=== PATIENT | male | born 1985 | race Hispanic/Latino ===

== ENCOUNTER 2016-08-16 15:44 | Emergency (ER) | payer SELFPAY ==
[2016-08-16] MEDS ORDERED: NORCO 5/325 PO ONE (18:33)
[2016-08-16] MEDS ORDERED: CLEOCIN PO ONE (18:34)
--- NOTE | 2016-08-16 18:44 | Emergency Department Report ---
ED ENT HPI - General Chief complaint: Dental/Oral Stated complaint: TOOTHACHE Time Seen by Provider: 08/16/16 18:05 Source: patient Mode of arrival: Ambulatory Limitations: No Limitations - History of Present Illness Initial comments: 30 male past medical history none presents with complaint of 3 days of right- sided upper dental pain and right-sided earache. Patient states he has had some swelling of his gum line has several severely carried teeth which he has had for several months and has not addressed. Denies any blood or pus drainage from mouth but does state that he has toothache in the right side. Denies any difficulty speaking no difficulty swallowing solids or liquids patient speaking in full sentences does not appear to be in acute distress does have very minor right-sided facial swelling. Patient also states incidentally that he has right -sided earache the last several days, has been cleaning his ears with Q-tips and hydrogen peroxide. MD complaint: tooth pain, ear pain Onset/Timin -: days(s) Location: R ear, tooth # (13-15) Severity: moderate Severity scale (0 -10): 6 Quality: aching Consistency: constant Improves with: none Worsens with: none Context- Dental: history of dental caries Associated Symptoms: gum swelling, toothache - Related Data Previous Rx's Medication Instructions Recorded Last Taken Type Acetaminophen/Codeine [Tylenol #3] 1 tab PO Q6H PRN #15 tab 08/16/16 Unknown Rx Cefpodoxime Proxetil 200 mg PO Q12H #14 tablet 08/16/16 Unknown Rx Chlorhexidine Mouthwash [Peridex] 30 ml MM BID #1 bottle 08/16/16 Unknown Rx Clindamycin [Clindamycin CAP] 300 mg PO Q6H #28 capsule 08/16/16 Unknown Rx Ibuprofen [Motrin] 600 mg PO Q8H PRN #25 tablet 08/16/16 Unknown Rx Neomy/Polymyx B/Hc (Otic) Soln 4 drops OTIC TID #1 bottle 08/16/16 Unknown Rx [Cortisporin (Otic) Soln] Allergies Allergy/AdvReac Type Severity Reaction Status Date / Time Penicillins Allergy Unknown Verified 08/16/16 16:36 ED Dental HPI - General Chief complaint: Dental/Oral Stated complaint: TOOTHACHE Time Seen by Provider: 08/16/16 18:05 Source: patient Mode of arrival: Ambulatory Limitations: No Limitations - Related Data Previous Rx's Medication Instructions Recorded Last Taken Type Acetaminophen/Codeine [Tylenol #3] 1 tab PO Q6H PRN #15 tab 08/16/16 Unknown Rx Cefpodoxime Proxetil 200 mg PO Q12H #14 tablet 08/16/16 Unknown Rx Chlorhexidine Mouthwash [Peridex] 30 ml MM BID #1 bottle 08/16/16 Unknown Rx Clindamycin [Clindamycin CAP] 300 mg PO Q6H #28 capsule 08/16/16 Unknown Rx Ibuprofen [Motrin] 600 mg PO Q8H PRN #25 tablet 08/16/16 Unknown Rx Neomy/Polymyx B/Hc (Otic) Soln 4 drops OTIC TID #1 bottle 08/16/16 Unknown Rx [Cortisporin (Otic) Soln] Allergies Allergy/AdvReac Type Severity Reaction Status Date / Time Penicillins Allergy Unknown Verified 08/16/16 16:36 ED Review of Systems ROS: Stated complaint: TOOTHACHE Other details as noted in HPI Constitutional: denies: chills, fever Eyes: denies: eye pain, eye discharge, vision change ENT: ear pain, dental pain. denies: throat pain Respiratory: denies: cough, shortness of breath, wheezing Cardiovascular: denies: chest pain, palpitations Endocrine: no symptoms reported Gastrointestinal: denies: abdominal pain, nausea, diarrhea Genitourinary: denies: urgency, dysuria Musculoskeletal: denies: back pain, joint swelling, arthralgia Skin: denies: rash, lesions Neurological: denies: headache, weakness, paresthesias Psychiatric: denies: anxiety, depression Hematological/Lymphatic: denies: easy bleeding, easy bruising ED Past Medical Hx - Past Medical History Previous Medical History?: No - Surgical History Past Surgical History?: No - Social History Smoking Status: Former Smoker Substance Use Type: None - Medications Home Medications: Home Medications Medication Instructions Recorded Confirmed Last Taken Type Acetaminophen/Codeine [Tylenol #3] 1 tab PO Q6H PRN #15 tab 08/16/16 Unknown Rx Cefpodoxime Proxetil 200 mg PO Q12H #14 tablet 08/16/16 Unknown Rx Chlorhexidine Mouthwash [Peridex] 30 ml MM BID #1 bottle 08/16/16 Unknown Rx Clindamycin [Clindamycin CAP] 300 mg PO Q6H #28 capsule 08/16/16 Unknown Rx Ibuprofen [Motrin] 600 mg PO Q8H PRN #25 tablet 08/16/16 Unknown Rx Neomy/Polymyx B/Hc (Otic) Soln 4 drops OTIC TID #1 bottle 08/16/16 Unknown Rx [Cortisporin (Otic) Soln] ED Physical Exam - General Limitations: No Limitations General appearance: alert, in no apparent distress - Head Head exam: Present: atraumatic, normocephalic - Eye Eye exam: Present: normal appearance, PERRL, EOMI - ENT ENT exam: Present: mucous membranes moist - Expanded ENT Exam Expanded TM/Canal exam: Erythema: Right TM, Bulging: Right TM, Effusion: Right TM, Foreign Body: Right TM (small amount of qtip hed in external canal right ear) Teeth exam: Present: dental caries, dental tenderness # (teeth 13-15 severely caries, worn down to gums, evidence of peridontal disease), gingival enlargement - Neck Neck exam: Present: normal inspection - Respiratory Respiratory exam: Present: normal lung sounds bilaterally. Absent: respiratory distress - Cardiovascular Cardiovascular Exam: Present: regular rate, normal rhythm. Absent: systolic murmur, diastolic murmur, rubs, gallop - GI/Abdominal GI/Abdominal exam: Present: soft, normal bowel sounds - Rectal Rectal exam: Present: deferred - Extremities Exam Extremities exam: Present: normal inspection - Back Exam Back exam: Present: normal inspection - Neurological Exam Neurological exam: Present: alert, oriented X3, CN II-XII intact - Psychiatric Psychiatric exam: Present: normal affect, normal mood - Skin Skin exam: Present: warm, dry, intact, normal color. Absent: rash ED Course Vital Signs 08/16/16 16:34 Temperature 99.1 F Pulse Rate 74 Respiratory 18 Rate Blood Pressure 135/96 O2 Sat by Pulse 98 Oximetry ED Medical Decision Making - Medical Decision Making A/P: Periodontal disease, multiple dental caries, right sided acute otitis media 1- Peridex mouthwash, by mouth clindamycin, Orajel when necessary, Motrin 600 when necessary, Tylenol No. 3 when necessary. Tiny dental abscess no indication for drainage or I&D at this time, I advised patient to return to the ED if area becomes progressively more swollen has difficulty swallowing or speaking or significant shortness of breath or any fevers above 100.4 Fahrenheit or chills jaw pain 2- small amount of cotton swab removed from right ear canal, right tympanic membrane effusion and injection/inflammation will treat empirically 3- Cefpodoxime (200 mg twice a day) for 7 days for coverage of otitis, topical corticosporin 4- I advised patient to follow up with a dentist as soon as possible and provided them information for multiple dental clinics, patient understood these instructions and the importance of dental follow-up expressed clear understanding. Critical care attestation.: If time is entered above; I have spent that time in minutes in the direct care of this critically ill patient, excluding procedure time. ED Disposition Clinical Impression: Dental caries, Periodontal disease Acute otitis media Qualifiers: Otitis media type: suppurative Laterality: right Recurrence: not specified as recurrent Spontaneous tympanic membrane rupture: without spontaneous rupture Qualified Code(s): H66.001 - Acute suppurative otitis media without spontaneous rupture of ear drum, right ear Disposition: DISCHARGED TO HOME OR SELFCARE Is pt being admited?: No Does the pt Need Aspirin: No Condition: Stable Instructions: Dental Caries (ED), Otitis Media (ED) Prescriptions: Acetaminophen/Codeine [Tylenol #3] 1 tab PO Q6H PRN #15 tab PRN Reason: Pain Cefpodoxime Proxetil 200 mg PO Q12H #14 tablet Chlorhexidine Mouthwash [Peridex] 30 ml MM BID #1 bottle Clindamycin [Clindamycin CAP] 300 mg PO Q6H #28 capsule Ibuprofen [Motrin] 600 mg PO Q8H PRN #25 tablet PRN Reason: Pain Neomy/Polymyx B/Hc (Otic) Soln [Cortisporin (Otic) Soln] 4 drops OTIC TID #1 bottle Referrals: [facility] [Outside] - 3-5 Days Forms: Accompanied Note, Work/School Release Form(ED) Time of Disposition: 19:01
[2016-08-16 19:17] VITALS: BP 132/88
== END 2016-08-16 19:17 | disposition home or self-care (01) ==
LOC: ED 15:44
DX: H66.001 Acute suppurative otitis media without spontaneous rupture of ear drum, right ear (principal); K02.9 Dental caries, unspecified; K05.6 Periodontal disease, unspecified; Z88.0 Allergy status to penicillin; Z87.891 Personal history of nicotine dependence
CPT/HCPCS: 99282